=== PATIENT | male | born 1970 | race Caucasian/White ===

== ENCOUNTER 2021-08-24 23:33 | Emergency (ER) | payer OTHER ==
[2021-08-25 00:25] LABS: HEMOGLOBIN 14.8 gm/dl (14.0-17.5); RED BLOOD COUNT 4.36 M/UL (4.20-5.50); WHITE BLOOD COUNT 10.5 K/UL (4.5-11.0)
[2021-08-25 00:56] LABS: BUN/CREATININE RATIO 17 (0-10)
== END 2021-08-25 05:20 | disposition left against medical advice (07) ==
LOC: ER1 23:33
PROVIDERS: Physician Assistant
DX: U07.1 COVID-19 (principal); I10 Essential (primary) hypertension; F17.210 Nicotine dependence, cigarettes, uncomplicated
CPT/HCPCS: 0240U; 80053; 82550; 82553; 83874; 83880; 84484; 85025; 85610; 85730; 93005; 99283